=== PATIENT | female | born 1970 | race Caucasian/White ===

== ENCOUNTER 2016-12-30 11:04 | Emergency (ER) | payer SELFPAY ==
[~2016-12-30] VITALS: Ht 165.1 cm; Wt 64.0 kg
[2016-12-30] MEDS ORDERED: SODIUM CHLORIDE FLUSH 10ML SYR IVF ONE (11:30)
[2016-12-30] MEDS ORDERED: PLEASE ENTER HEIGHT AND WEIGHT MC SCH (11:30)
[2016-12-30] MEDS ORDERED: SODIUM CHLORIDE 0.9% 1,000ML IVBOLUS ONE (11:30)
[2016-12-30 12:13] LABS: BLOOD UREA NITROGEN 12 mg/dL (7-18)
[2016-12-30 13:11] LABS: DAU SCREEN DISCLAIMER
[2016-12-30 13:12] VITALS: BP 149/96
== END 2016-12-30 14:56 | disposition home or self-care (01) ==
LOC: ED 14:50
DX: E86.0 Dehydration (principal); I95.9 Hypotension, unspecified; J45.909 Unspecified asthma, uncomplicated; F17.200 Nicotine dependence, unspecified, uncomplicated
CPT/HCPCS: 36415; 80048; 80307; 82040; 85025; 93005; 96360; 99285; J7030